=== PATIENT | female | born 1950 | race Caucasian/White ===

== ENCOUNTER 2017-01-03 10:52 | Emergency (ER) | payer BC, MEDICARE ==
[~2017-01-03] VITALS: Ht 167.6 cm; Wt 85.0 kg
[2017-01-03 10:55] VITALS: BP 145/95; PULSE 82; RESP 16; TEMP 98.9; O2SAT 98
[2017-01-03] MEDS ORDERED: LISI-519 PO (11:00)
--- NOTE | 2017-01-03 11:12 | PD ---
HPI Chief Complaint: Respiratory Symptoms Time Seen by Provider: 11:12 Travel History International Travel<30 days: No Contact w/Intl Traveler<30days: No Traveled to known affect area: No History of Present Illness HPI 66-year-old female came to the emergency room with history of shortness of breath that's been going on for past 1 year and right leg pain that's been going on for past 6 months. However her symptoms have worsened over the past 1 month. Patient is from [place] and said that she had pulmonary function tests and stress test done in [place] for the symptoms and they were within normal limits. However she has strong family history of PE and DVT including her sister who had DVT and PE and her mother of it. She recently found out about this family history and was concerned and came here today to be checked out. She did not appear to be in any severe distress. She is denying any chest pain per se today. Her shortness of breath worsens when she is ambulating. However patient says because of her leg pain she hasn't been able to move too much. No history of trauma. She points to the back of her right thigh has location of her pain. [facility] Past Medical History Narrative Medical List of her past medical, surgical, social and family history was reviewed from the nursing note. Medical History: Denies Significant Hx Diminished Hearing: No Respiratory: Yes (COPD) Tetanus Vaccination: Unknown Influenza Vaccination: Yes ?: Not Past Surgical History Surgical History: No Previous Surgery Social History Alcohol Use: Yes (OCC) Tobacco Use: No Substance Use: No Allergies-Medications (Allergen,Severity, Reaction): Coded Allergies: Penicillin (Verified Allergy, Severe, HIVES, 01/03/17) Comments List of her allergies reviewed from the nursing note. Reported Meds & Prescriptions Reported Meds & Active Scripts Active Reported Lisinopril 5 Mg Tab 7.5 Mg PO DAILY@1600 Narrative Medication List of her home medications reviewed from the nursing note. Review of Systems Except as stated in HPI: all other systems reviewed are Neg Physical Exam Narrative GENERAL: Awake, alert, looks depressed SKIN: Warm and dry. HEAD: Atraumatic. Normocephalic. EYES: Pupils equal and round. No scleral icterus. No injection or drainage. ENT: No nasal bleeding or discharge. Mucous membranes pink and moist. NECK: Trachea midline. No JVD. CARDIOVASCULAR: Regular rate and rhythm. No murmur appreciated. RESPIRATORY: No accessory muscle use. Clear to auscultation. Breath sounds equal bilaterally. GASTROINTESTINAL: Abdomen soft, non-tender, nondistended. Hepatic and splenic margins not palpable. MUSCULOSKELETAL: No obvious deformities. No clubbing. No cyanosis. No edema. SLR was negative NEUROLOGICAL: Awake and alert. No obvious cranial nerve deficits. Motor grossly within normal limits. Normal speech. PSYCHIATRIC: Appropriate mood and affect; insight and judgment normal. Data Data Last Documented VS Vital Signs Date Time Temp Pulse Resp B/P Pulse Ox O2 Delivery O2 Flow Rate FiO2 01/03/17 14:37 66 16 135/76 01/03/17 13:30 96 Room Air 01/03/17 10:55 98.9 Orders Complete Blood Count With Diff (01/03/17 11:39) Basic Metabolic Panel (Bmp) (01/03/17 11:39) Iv Access Insert/Monitor (01/03/17 11:39) Electrocardiogram (01/03/17 11:39) Ecg Monitoring (01/03/17 11:39) Oximetry (01/03/17 11:39) Oxygen Administration (01/03/17 11:39) Ct Pulmonary Angiogram (01/03/17 11:39) Sodium Chloride 0.9% Flush (Ns Flush) (01/03/17 11:45) Iohexol 350 Inj (Omnipaque 350 Inj) (01/03/17 13:26) Labs Laboratory Tests Test 01/03/17 12:25 White Blood Count 3.8 TH/MM3 Red Blood Count 4.13 MIL/MM3 Hemoglobin 12.4 GM/DL Hematocrit 36.0 % Mean Corpuscular Volume 87.1 FL Mean Corpuscular Hemoglobin 30.0 PG Mean Corpuscular Hemoglobin 34.4 % Concent Red Cell Distribution Width 12.4 % Platelet Count 200 TH/MM3 Mean Platelet Volume 8.5 FL Neutrophils (%) (Auto) 36.2 % Lymphocytes (%) (Auto) 25.3 % Monocytes (%) (Auto) 10.3 % Eosinophils (%) (Auto) 27.1 % Basophils (%) (Auto) 1.1 % Neutrophils # (Auto) 1.4 TH/MM3 Lymphocytes # (Auto) 1.0 TH/MM3 Monocytes # (Auto) 0.4 TH/MM3 Eosinophils # (Auto) 1.0 TH/MM3 Basophils # (Auto) 0.0 TH/MM3 CBC Comment DIFF FINAL Differential Comment Sodium Level 141 MEQ/L Potassium Level 4.1 MEQ/L Chloride Level 104 MEQ/L Carbon Dioxide Level 26.8 MEQ/L Anion Gap 10 MEQ/L Blood Urea Nitrogen 15 MG/DL Creatinine 0.88 MG/DL Estimat Glomerular Filtration 64 ML/MIN Rate Random Glucose 103 MG/DL Calcium Level 9.2 MG/DL MDM Medical Decision Making Medical Screen Exam Complete: Yes Emergency Medical Condition: Yes Medical Record Reviewed: Yes Interpretation(s) Twelve-lead EKG was reviewed by me. Normal sinus rhythm, normal axis, nonspecific ST-T wave changes. Heart rate of 60 bpm. Differential Diagnosis PE, musculoskeletal pain Narrative Course 12:14 PM awaiting for the blood test and the CAT scan to be done and resulted. 1:23 PM blood test results are back. Patient has slight leukopenia but otherwise within acceptable limits. Awaiting for the CAT scan to be done and resulted. Patient continues to be comfortable. 2:[address] for pulmonary embolism was negative. I will discharge her home. Procedures EKG Prior to Arrival: No Diagnosis Primary Impression: Leg pain Qualified Code: M79.604 - Pain of right lower extremity Additional Impressions: Shortness of breath Chronic factitious illness with physical symptoms Samara Gallego MD Jan 03, 2017 11:12
[2017-01-03 11:40] VITALS: RESP 16; O2SAT 97
[2017-01-03] MEDS ORDERED: SODIUM CHLORIDE 0.9% FLUSH 5 ML FLUSH IVF PRN (11:45)
[2017-01-03 12:30] VITALS: BP 144/74; PULSE 64; RESP 16; O2SAT 97
[2017-01-03 12:43] LABS: AUTOMATED NEUTROPHIL # 1.4 TH/MM3 (1.8-7.7); BASOPHIL % 1.1 % (0.0-2.0); EOSINOPHIL % 27.1 % (0.0-4.0); HEMO FLAGS DIFF FINAL; LYMPH % 25.3 % (9.0-44.0); MEAN CELL VOLUME 87.1 FL (80.0-100.0); MEAN CORPUSCULAR HGB CONC 34.4 % (32.0-36.0); MONO % 10.3 % (0.0-8.0); NEUT % 36.2 % (16.0-70.0); PLATELET COUNT 200 TH/MM3 (150-450); RED BLOOD COUNT 4.13 MIL/MM3 (4.00-5.30); RED CELL DISTRIBUTION WIDTH 12.4 % (11.6-17.2); WHITE BLOOD COUNT 3.8 TH/MM3 (4.0-11.0)
[2017-01-03 12:51] LABS: POTASSIUM 4.1 MEQ/L (3.5-5.1)
[2017-01-03 12:54] LABS: BICARBONATE 26.8 MEQ/L (21.0-32.0)
[2017-01-03] MEDS ORDERED: IOHEXOL 350 MG/ML 10 ML VIAL (for RAD DIAG) IV ONE (13:26)
--- NOTE | 2017-01-03 14:04 | RADHPO ---
EXAM DATE/TIME: 01/03/2017 13:13 [place] COMPARISON: No previous studies available for comparison. INDICATIONS : Short of breath . Evaluate for pulmonary embolism. IV CONTRAST: 65 cc Omnipaque 350 (iohexol) IV RADIATION DOSE: 15.38 CTDIvol (mGy) MEDICAL HISTORY : Chronic obstructive pulmonary disease. SURGICAL HISTORY : None. ENCOUNTER: Initial ACUITY: 1 day PAIN SCALE: 0/10 LOCATION: chest TECHNIQUE: Volumetric scanning of the chest was performed using a pulmonary embolism protocol MIP images were re constructed. Using automated exposure control and adjustment of the mA and/or kV according to patien t size, radiation dose was kept as low as reasonably achievable to obtain optimal diagnostic quality images. FINDINGS: PULMONARY ARTERIES: No filling defects are seen in the pulmonary arteries through the segmental level. LUNGS: There is no consolidation or pneumothorax . No concerning pulmonary nodule is visualized. PLEURAE: There is no pleural thickening or pleural effusion. MEDIASTINUM: There is good visualization of the great vessels of the middle mediastinum. No evidence of mediastin al or hilar adenopathy/mass. MUSCULOSKELETAL: Within normal limits for patient age. MISCELLANEOUS: The visualized upper abdominal organs demonstrate no acute abnormality. CONCLUSION: No pulmonary embolus. Guy Lopez MD on January 03, 2017 at 13:56 Board Certified Radiologist. This report was verified electronically.
[2017-01-03 14:37] VITALS: BP 135/76
--- NOTE | 2017-01-04 20:29 | EKG ---
Date Performed: 01/03/2017 Time Performed: 11:49:58 PTAGE: 66 years EKG: Sinus rhythm ST junctional depression is nonspecific Borderline ECG NO PREVIOUS TRACING DOCTOR: Naomie Delaney Interpretating Date/Time 01/04/2017 20:27:55
== END 2017-01-03 14:42 | disposition home or self-care (01) ==
LOC: PHED 10:52
DX: M79.604 Pain in right leg (principal); R06.02 Shortness of breath; R94.31 Abnormal electrocardiogram [ECG] [EKG]
CPT/HCPCS: 71275; 80048; 85025; 93005; 99285; Q9967